=== PATIENT | male | born 2000 | race Two or more races ===

== ENCOUNTER → 2024-07-04 | Outpatient (CLI) | payer OTHER | LOC: M RAD 07:43 | PROVIDERS: ATTEND Physician Assistant | DX: M95.8 Other specified acquired deformities of musculoskeletal system (principal); M21.829 Other specified acquired deformities of unspecified upper arm; M25.412 Effusion, left shoulder ==

== ENCOUNTER 2024-09-10 11:17 | Emergency (ER) | payer OTHER ==
[~2024-09-10] VITALS: Ht 195.6 cm; Wt 98.5 kg
[2024-09-10] MEDS: ONDANSETRON 4MG 2ML VIAL IV ONE (12:35)
[2024-09-10] MEDS: NS (Normal Saline) 0.9% 1,000 ML IV ONE (12:35)
[2024-09-10] MEDS: KETOROLAC 30 MG/ML 1ML VIAL IV ONE (12:35)
[2024-09-10 13:21] LABS: BASO % 0.2 % (0.0-1.0); EOS % 0.3 % (0.0-3.0); HEMATOCRIT 50.7 % (42.0-52.0); HEMOGLOBIN 17.1 g/dl (13.5-17.5); LYMPH # 0.4 10^3/uL (1.5-5.0); LYMPH % 3.9 % (24.0-44.0); MEAN CORPUSCULAR HEMOGLOBIN 28.8 pg (27.0-33.0); MEAN CORPUSCULAR HGB CONC 33.7 g/dl (32.0-36.5); MEAN CORPUSCULAR VOLUME 85.4 fl (80.0-96.0); MONO # 0.6 10^3/uL (0.0-0.8); MONO % 5.6 % (2.0-8.0); NEUTROPHILS # 8.9 10^3/uL (1.5-8.5); NEUTROPHILS % 89.7 % (36.0-66.0); PLATELET COUNT, AUTOMATED 221 10^3/uL (150-450); RED BLOOD COUNT 5.94 10^6/uL (4.30-6.10); WHITE BLOOD COUNT 9.9 10^3/uL (4.0-10.0)
[2024-09-10 13:49] LABS: LIPASE 30 U/L (12-53)
[2024-09-10 13:51] LABS: ALBUMIN 4.4 G/DL (3.2-5.2); ALKALINE PHOSPHATASE 88 U/L (40-129); ALT/SGPT 45 U/L (7.0-40); AST/SGOT 68 U/L (<34); BILIRUBIN,TOTAL 1.6 MG/DL (0.3-1.2); BLOOD UREA NITROGEN 21 MG/DL (9-23); CALCIUM LEVEL 9.8 MG/DL (8.5-10.1); CARBON DIOXIDE LEVEL 23 MMOL/L (20-31); CHLORIDE LEVEL 108 MMOL/L (98-107); CREATININE FOR GFR 1.22 MG/DL (0.70-1.30); GLOMERULAR FILTRATION RATE > 60.0 (>60); GLUCOSE, FASTING 118 MG/DL (60-100); POTASSIUM SERUM 5.5 MMOL/L (3.5-5.1); SODIUM LEVEL 141 MMOL/L (136-145); TOTAL PROTEIN 7.5 G/DL (5.7-8.2)
[2024-09-10] MEDS ORDERED: ONDA-282 PO (15:56)
[2024-09-10 16:07] VITALS: TEMP 98.4
[2024-09-10 16:12] VITALS: BP 119/66; O2SAT 97
== END 2024-09-10 16:14 | disposition home or self-care (01) ==
LOC: M ED 11:17
DX: R11.2 Nausea with vomiting, unspecified (principal); R19.7 Diarrhea, unspecified; F17.210 Nicotine dependence, cigarettes, uncomplicated; Z79.899 Other long term (current) drug therapy
CPT/HCPCS: 80047; 80053; 83690; 85025; 87486; 87581; 87633; 87798; 87880; 96374; 99284; J1885; J2405